=== PATIENT | female | born 1975 | race Two or more races ===

== ENCOUNTER 2024-04-01 18:00 | Emergency (ER) | payer MEDICAID, SELFPAY ==
[2024-04-01 18:51] VITALS: BP 162/95; PULSE 98; RESP 16; TEMP 37.2; O2SAT 98; BMI 31.6
--- NOTE | 2024-04-01 18:56 | PD.EDRME ---
Rapid Medical Screening Exam RME Arrival date/time: 04/01/24 18:00 49-year-old female with past medical history of cholecystectomy presents emergency department complaining of right upper quadrant pain that radiates towards the back that been ongoing for 4 days. Chief Complaint: Abdominal Pain Time Seen by Provider: 04/01/24 18:26 Vital signs: Vital Signs Temperature 99 F 04/01/24 18:51 Pulse Rate 98 04/01/24 18:51 Respiratory Rate 16 04/01/24 18:51 Blood Pressure 162/95 H 04/01/24 18:51 Pulse Oximetry (%) 98 04/01/24 18:51 Oxygen Delivery Method Room Air 04/01/24 18:51 Vital signs reviewed by provider: Yes
[2024-04-01] MEDS: MG HYD/AL HYD/SIME (Maalox Reg) SUSP 30 ML UDC PO (19:09)
[2024-04-01] MEDS: FAMOTIDINE 20 MG TABLET PO (19:10)
[2024-04-01 19:39] LABS: Collection Type, Urine Clean Catch
[2024-04-01 19:46] LABS: Basophils # (Auto) 0.1 Thou/mm3 (0.0-0.2); Basophils % (Auto) 1 % (0-2.5); Eosinophils % (Auto) 0 % (0-10); Hematocrit 40.3 % (36.0-46.0); Hemoglobin 13.5 g/dL (12.0-16.0); Immature Granulocytes % (Auto) 0 % (0-0); Immature Granulocytes Auto 0.03 Thou/mm3 (0.00-0.00); Lymphocytes # (Auto) 2.6 Thou/mm3 (1.0-4.8); Lymphocytes % (Auto) 21 % (10-50); Mean Corpuscular HGB Conc 33.5 g/dl (31.0-37.0); Mean Corpuscular Hemoglobin 30.7 pg (25.0-35.0); Mean Corpuscular Volume 92 fL (80-100); Monocytes % (Auto) 8 % (0-12); Neutrophils # (Auto) 8.3 Thou/mm3 (1.8-7.7); Neutrophils % (Auto) 69 % (37-80); Nucleated Red Blood Cell % 0 /100 WBC (0); Platelet Count 314 Thou/mm3 (140-440); RDW Standard Deviation 47.7 fL (36.4-46.3)
[2024-04-01 20:19] LABS: Alanine Aminotransferase 13 U/L (10-49); Albumin, Serum 5.1 gm/dL (3.5-5.0); Albumin/Globulin Ratio 1.6 (1.2-2.2); Alkaline Phosphatase 77 U/L (46-116); Anion Gap 8 (7-16); Aspartate Amino Transferase 21 U/L (0-34); BUN/Creatinine Ratio 16 Ratio (12-20); Bilirubin,Total 0.4 mg/dL (0.3-1.2); Blood Urea Nitrogen 13 mg/dL (9-23); Calcium 9.8 mg/dL (8.3-10.6); Calcium (Corrected) 9.8 mg/dL (8.5-10.1); Carbon Dioxide 28.6 mMol/L (20.0-31.0); Chloride 102 mMol/L (98-107); Creatinine (Component) 0.8 mg/dL (0.6-1.3); Estimated Creatinine Clearance 104.4 mL/min (>60); Globulin 3.2 gm/dL (2.3-3.5); Glucose 119 mg/dL (74-106); Lipase 50 U/L (12-53); Osmolality,Calculated 278 (275-295); Potassium 3.8 mMol/L (3.4-5.1); Sodium 139 mMol/L (136-145); Total Protein 8.3 gm/dL (5.7-8.2); eGFR > 60 See Note
[2024-04-01 20:27] LABS: HCG,Qualitative Serum Negative
[2024-04-01 20:31] LABS: Bacteria,Urine Rare; Bilirubin,Urine Negative (Negative); Blood,Urine 3+ (Negative); Clarity,Urine Clear (Clear/Hazy); Color,Urine Lt-Yellow (Lt Yel-Yel); Culture Indicated,Urine Not Indicated; Glucose, Urine Negative (Negative); Ketones,Urine Negative (Negative); Leukocyte Esterase,Urine Negative (Negative); Nitrite,Urine Negative (Negative); Protein,Urine Negative (Neg - Trace); RBC,Urine 2 /hpf (0-3); Specific Gravity,Urine 1.014 (1.001-1.035); Squamous Epithelial Cell,Urine 3 /hpf (0-5); Urobilinogen,Urine Negative mg/dL (0.0-1.0); WBC,Urine 3 /hpf (0-5)
[2024-04-01 20:34] LABS: Sperm,Urine Present
--- NOTE | 2024-04-01 20:38 | EDNOTE_ITS ---
ED Abdominal Pain RME/HPI General Chief Complaint: Abdominal Pain Stated complaint: Mid abd. pain radiating to back x 5d Time seen by provider: 04/01/24 18:26 Arrival date/time: 04/01/24 18:00 49-year-old female with past medical history of cholecystectomy presents emergency department complaining of right upper quadrant pain that radiates towards the back that been ongoing for 4 days. Source: patient Mode of arrival: ambulatory Limitations: no limitations RME / HPI RME / HPI narrative: 04/01/24 18:00 49-year-old female with past medical history of cholecystectomy presents emergency department complaining of right upper quadrant pain that radiates towards the back that been ongoing for 4 days. Related Data Home Medications ?Medication ?Instructions ?Recorded ?Confirmed amoxicillin 500 mg tablet 1 tab PO TID 02/01/18 02/01/18 Previous Rx's ?Medication ?Instructions ?Recorded diphenhydramine HCl 25 mg capsule 25 mg PO TID #14 caps 02/01/18 (Benadryl) prednisone 50 mg tablet 50 mg PO QDAY #5 tabs 02/01/18 diphenhydramine HCl 25 mg capsule 25 mg PO Q8H PRN allergic symptoms 06/03/20 (Benadryl) #30 caps acetaminophen 500 mg capsule 500 mg PO Q6H PRN pain #30 caps 04/01/24 azithromycin 250 mg tablet See Rx Instructions PO .COMPLEX #6 04/01/24 tabs Allergies Allergy/AdvReac Type Severity Reaction Status Date / Time Penicillins Allergy Intermediate RASH Verified 04/01/24 18:03 shellfish derived Allergy Verified 04/01/24 18:03 Review of Systems Review of Systems Systems Reviewed: All systems reviewed, normal except as documented Constitutional Constitutional: Reports system reviewed and no additional complaints, except as documented, Denies body ache(s), Denies chills and Denies fever(s) Eyes Eyes: Reports system reviewed and no additional complaints, except as documented and Denies change in vision ENT Ears, Nose, Mouth, and Throat: Reports system reviewed and no additional complaints, except as documented, Denies disequilibrium, Denies dizziness, Denies sore throat and Denies vertigo Cardiovascular Cardiovascular: Reports system reviewed and no additional complaints, except as documented, Denies chest pain and Denies dyspnea Respiratory Respiratory: Reports system reviewed and no additional complaints, except as documented, Denies chest congestion, Denies cough and Denies dyspnea Gastrointestinal Gastrointestinal: Reports system reviewed and no additional complaints, except as documented, Reports abdominal pain, Denies nausea and Denies vomiting Musculoskeletal Musculoskeletal: Reports system reviewed and no additional complaints, except as documented, Denies abnormal gait and Denies arthralgias Integumentary/Breasts Skin/Breast: Reports system reviewed and no additional complaints, except as documented, Denies erythema, Denies rash and Denies wounds Neurologic Neurologic: Reports system reviewed and no additional complaints, except as documented, Denies abnormal gait, Denies disequilibrium, Denies dizziness and Denies vertigo Past Medical History Past Medical History CARDIAC: Negative Congestive Heart Failure RESPIRATORY: Negative Chronic Obstructive Pulmonary Disease (COPD) GENITOURINARY: Negative Renal Disease ENDOCRINE: Negative Diabetes Mellitus Type 1 or Diabetes Mellitus Type 2 Social History SMOKING STATUS: Never smoker ED Exam General Limitations: Present no limitations General appearance: Present alert and in no apparent distress Head Head exam: Present atraumatic Eye Eye exam: Present normal appearance, PERRL and EOMI ENT ENT exam: Present normal exam, normal oropharynx and mucous membranes moist Neck Neck exam: Present normal inspection, full ROM and trachea midline Chest Chest inspection: Present normal inspection and symmetric chest wall rise Respiratory Respiratory exam: Present normal lung sounds bilaterally Cardiovascular Cardiovascular exam: Present regular rate, normal rhythm and normal heart sounds Abdominal Exam Abdominal exam: Present soft and normal bowel sounds; Absent Rodgers's sign Extremities Exam Extremities exam: Present normal inspection and full ROM Back Exam Back exam: Present normal inspection and full ROM Neurological Exam Neurological exam: Present alert, oriented X3 and CN II-XII intact Psychiatric Psychiatric exam: Present normal affect and normal mood Skin Skin exam: Present warm, dry, intact and normal color Course Quality Measures none Orders Category Date Time Status XR chest 2V Stat Exams 04/01/24 20:51 Completed CBC Stat Lab 04/01/24 19:27 Completed CMP [Comprehensive Metabolic Panel] Stat Lab 04/01/24 19:27 Completed HCG,Qualitative Serum Stat Lab 04/01/24 19:27 Completed Lipase Stat Lab 04/01/24 19:27 Completed Urinalysis, C/S if Indicated Stat Lab 04/01/24 19:31 Completed Famotidine [Pepcid] Med 04/01/24 18:55 Discontinued 20 mg PO X1 ONE Ketorolac Inj [Toradol Inj] Med 04/01/24 20:51 Discontinued 30 mg IM X1 ONE cefTRIAXone [Rocephin] 1,000 mg Med 04/01/24 21:28 Discontinued Lidocaine 1% 20 ml [Xylocaine 1% 20 ML] 2.1 ml IM X1 mg Hyd/Al Hyd/Chiqui Susp [Maalox Susp] Med 04/01/24 18:55 Discontinued 30 ml PO X1 ONE Vital Signs Vital signs: Vital Signs Temperature 99 F 04/01/24 18:51 Pulse Rate 98 04/01/24 18:51 Respiratory Rate 16 04/01/24 18:51 Blood Pressure 162/95 H 04/01/24 18:51 Pulse Oximetry (%) 98 04/01/24 18:51 Oxygen Delivery Method Room Air 04/01/24 18:51 98% room air within normal limits Abdominal Pain MDM MDM Narrative MDM Narrative:: 49-year-old female with past medical history of cholecystectomy presents emergency department complaining of right upper quadrant pain that radiates towards the back that been ongoing for 4 days. CBC mild leukocytosis 12.0. CMP was unremarkable. Urinalysis unremarkable. Chest x-ray findings suspicious right lower lobe pneumonia. Patient appears nontoxic and is hemodynamic stable. Patient appears to be in any respiratory distress. Patient given IM Rocephin and discharged on oral antibiotics. Patient data External records reviewed:: [facility] previous records Clinical information provided by:: patient Social determinants that could affect healthcare access:: none Patient has the following chronic illnesses:: See chart How is presenting disease/condition affected by chronic disease/condition?: uneffected by Evaluation data The following diagnostics were reviewed and interpreted by me:: lab results and radiology exam(s) Lab and/or radiology exams considered but not ordered:: Ordered Interpretation Summary: Interpreted by me Medications / Prescriptions Medications or Prescriptions considered but not ordered:: Ordered Medication administrations:: Medication Administration History Discontinued Medications Al Hydrox/Mg Hydrox/Simethicone (Mg Hyd/Al Hyd/Chiqui (Maalox Reg) Susp 30 Ml Udc) 30 ml PO X1 ONE Stop: 04/01/24 18:56 Last Admin: 04/01/24 19:09 Dose: 30 ml Documented By: CULLEN Ceftriaxone Sodium 1,000 mg/ (Lidocaine HCl 2.1 ml) 0 mg IM X1 ONE Stop: 04/01/24 21:29 Last Admin: 04/01/24 21:33 Dose: 2.1 mg Documented By: OA Famotidine (Famotidine 20 Mg Tablet) 20 mg PO X1 ONE Stop: 04/01/24 18:56 Last Admin: 04/01/24 19:10 Dose: 20 mg Documented By: OA Ketorolac Tromethamine (Ketorolac Inj 60 Mg/2 Ml Vial) 30 mg IM X1 ONE Stop: 04/01/24 20:52 Last Admin: 04/01/24 21:27 Dose: Not Given Documented By: SF Non-Admin Reason: Patient Refused Given Consultations Consultation(s) initiated? (list below): No Diagnosis Differential diagnosis abdominal pain: abdominal pain, calculus of kidney, constipation, diverticulitis, endometriosis and gastroenteritis Most likely diagnosis given after review of the tests above:: Pneumonia Admission Indicated Admission indicated?: not indicated Admission Request Was there a request for admission?: No Disposition Plan Disposition Plan: Discharge Discharge Attestation Discharge Attestation: The patient and all family members were given an opportunity to ask questions and understood the discharge instructions. Discharge instructions specifically effects, indications for sooner follow up or return to the emergency department, and the expected course of current diagnosis. Patient condition: Stable Discharge Plan Plan Patient Disposition: HOME (Self Care) Disposition Comment: Stable Prescriptions/Referrals Prescriptions/Med Rec: New azithromycin 250 mg tablet See Rx Instructions .ROUTE .COMPLEX Qty: 6 0RF Rx Instructions: For 250 mg dose pack: take 500 mg today (day 1), then 250 mg for 4 days (days 2-5) acetaminophen 500 mg capsule 500 mg PO Q6H PRN (Reason: pain) Qty: 30 0RF No Action diphenhydramine HCl [Benadryl] 25 mg capsule 25 mg PO Q8H PRN (Reason: allergic symptoms) Qty: 30 0RF amoxicillin 500 mg Tablet 1 tab PO TID diphenhydramine HCl [Benadryl] 25 mg capsule 25 mg PO TID Qty: 14 0RF prednisone 50 mg tablet 50 mg PO QDAY Qty: 5 0RF Referrals: Reed Jerez MD [Primary Care Provider] - In 1 week Problem List Clinical Impression: Pneumonia Patient/Caregiver Discharge Instructions Discharge Activity: activity as tolerated Education Materials: ED Pneumonia (Adult) Additional Instructions: Evite comer alimentos grasos y picantes. L?quidos seg?n tolerancia. Seguimiento con proveedor de atenci?n primaria en 2 a 3 d?as. Regrese al departamento de emergencias si los s?ntomas empeoran o seg?n sea necesario. Take antibiotics as prescribed. Fluids as tolerated. Follow-up with primary care provider in 2 to 3 days. Return to emergency department for any worsening symptoms or as needed. Print Language: Stateless Stand Alone Forms: Kristin Award Info., Patient Portal Info Letter PA/SIX SIGMA BLACK BELT ENGINEER Supervising Physician PA/SIX SIGMA [employer]T ENGINEER Supervising Physician: Dr. Cm
--- NOTE | 2024-04-01 20:51 | XR_ITS ---
Examination: PA lateral chest 2 views Technique: Upright PA lateral chest 2 views Exam date and time: April 01, 2024 2101 hrs. Indications: Mid abdominal pain radiating to the back beginning 5 days ago. Findings: Atelectasis versus cirrhosis early pneumonia right base obscuring detail right hemidiaphragm Reduced inspiratory effort Normal heart size No pulmonary edema Impression: Atelectasis versus early pneumonia right base
[2024-04-01] MEDS: cefTRIAXone 1,000 MG, LIDOCAINE 1% 20 ML 2.1 ML IM (21:33)
== END 2024-04-01 21:46 | disposition home or self-care (01) ==
PROVIDERS: Emergency Provider Emergency Medicine; PCP Family Medicine
DX: J18.9 Pneumonia, unspecified organism (principal)
CPT/HCPCS: 36415; 71046; 80053; 81001; 83690; 84703; 85025; 96372; 99283; J0696; J1885; J3490; A9270